=== PATIENT | female | born 1940 | race Caucasian/White ===

== ENCOUNTER 2019-10-28 11:57 | Emergency (ER) | payer MEDICARE, SELFPAY ==
[2019-10-28 11:58] VITALS: BP 121/72; PULSE 102; RESP 16; TEMP 36.3; O2SAT 98; BMI 21.4
--- NOTE | 2019-10-28 12:14 | EKG12_ITS ---
Test Reason : SOB, EKG CHNGE @ Blood Pressure : / mmHG Vent. Rate : 079 BPM Atrial Rate : 079 BPM P-R Int : 138 ms QRS Dur : 080 ms QT Int : 366 ms P-R-T Axes : 063 -26 055 degrees QTc Int : 419 ms Normal sinus rhythm Low voltage QRS (Limb Leads) Poor R wave progression Inferior RI, age undetermined, cannot be excluded Confirmed by JONNA STALEY, CALIN ([id number]), manager editorial PARK ZARATE ([id number]) on 10/31/2019 10:25:46 AM Referred By: LENA Confirmed By:CALIN COYLE MD
--- NOTE | 2019-10-28 12:20 | ED.DCSUM_ITS ---
- ER Visit Summary Date of Service: 10/28/19 Chief Complaint: HPI Cough and recent URI currently on Zithromax Z-RUPAL. States she just felt weak for last several days. Denies any dysuria melena. Has epigastric abdominal discomfort which she thinks is from coughing. Denies nausea, vomiting or diarrhea. No melena. No dysuria. No fever. Was seen today in primary care physician's office by 1 of the other physicians. They sent her in for further evaluation after he did an EKG. She denies any recent exertional chest pain or exertional dyspnea. States she just feels generally weak. Physical Exam: The patient is a 79 F history of asthma and reflux. Prior hysterectomy. No cardiac disease history. H EENT exam unremarkable. Neck is nontender no JVD no lymphadenopathy. Lungs wet cough. Expiratory wheezing. Heart regular rate and rhythm no murmur rate about 75. Abdomen soft nontender normal bowel sounds no peritoneal signs. No pulsatile mass. Right upper inner quadrant port old. No obstruction. Extremities moves all 4. Neurovascular intact. Calves nontender without edema or cords. Neurologically she is awake and alert with no focal motor deficits. Test Results: Normal white count of 6. Hemoglobin 15. No bands. Chemistries normal. Normal gap normal creatinine. Liver enzymes normal. Lipase normal. Troponin normal. EKG sinus rhythm rate 79 no acute signs of OH or ischemia. Unchanged from prior EKG from 2016. Chest x-ray normal no acute abnormality normal cardiac silhouette mediastinum. 2 views AP and lateral read both by myself and the radiologist. Emergency Department Course and Treatment: Clinically appears the patient has a viral respiratory infection. Will rule out pneumonia. He is atypical and most likely noncardiac epigastric pain. I will check a troponin lipase and liver enzymes along with other screening labs. She will receive 1 DuoNeb aerosol for expiratory wheezing. Repeat exam patient doing well at 1517. I had a long discussion with her and family. The epigastric discomfort is a burning sensation. A work-up for its negative. She has been on a proton pump inhibitor in the past. She will be started on Prilosec. Follow-up with your doctor to make sure this is improving because if it is not she may need imaging. Treatment Plan: Prilosec daily. For 2 weeks. Follow-up with your doctor. Return if worse. Disposition: dc Impression: Acute generalized weakness Acute bronchitis with wheezing Epigastric dull pain secondary to gastritis This note was generated with [employer] dictation software. It may contain incorrect words, spelling, and punctuation that were not noted in review of the chart prior to signing ED Disposition - Plan for ED Patient: Referrals: Dimitry Bain MD [Primary Care Provider] -
[2019-10-28] MEDS: Ipratropium/Albuterol Sulfate 3 ML AMPUL.NEB INHALATION (12:27)
[2019-10-28 12:31] VITALS: PULSE 76; RESP 18; O2SAT 94
--- NOTE | 2019-10-28 12:40 | RAD_ITS ---
STUDY: X-RAY CHEST REASON FOR EXAM: Female, 79 years old. COUGH AND WHEEZING, SOB -- X 10 DAYS TECHNIQUE: PA and lateral views of the chest. COMPARISON: None. FINDINGS: Hyperinflation. The lungs are clear. There is no demonstrated pleural abnormality. Normal size heart. Normal mediastinum and caro. Normal visualized pulmonary arteries. Normal visualized aortic arch and descending thoracic aorta. There is demineralization of the osseous structures. Normal visualized ribs, clavicles, and shoulders. There is no demonstrated abnormality of the visualized soft tissue structures of the upper abdomen. RAD/Chest PA and Lateral IMPRESSION: Hyperinflation. Electronically Signed: Paul Burton, at 12:57 EST , Service support ,
[2019-10-28 12:45] LABS: Absolute Lymphocyte Count 1.31 X10^3/uL (0.83-4.51); Absolute Neutrophil Count 4.3 X10^3/uL (2.0-7.7); Basophil# 0.01 X10^3/uL; Basophil% 0.2 % (0-1); Eosinophil# 0.01 X10^3/uL; Eosinophils% 0.2 % (0-5); Hemoglobin 15.3 g/dL (12.0-15.0); Lymphocyte # 1.31 X10^3/ul (4.0); Lymphocyte % 21.3 % (19-41); Mean Corpuscular Hgb 30.5 pg (27.0-32.0); Mean Corpuscular Volume 89.8 fL (81-99); Mean Platelet Vol. 9.7 fl (6.2-12.0); Monocyte# 0.47 X10^3/uL; Monocyte% 7.6 % (0-10); NRBC Flagged by Analyzer 0 % (0-5); Neutrophil # 4.34 X10^3/uL (2.7-7.7); Neutrophil % 70.5 % (47-70); Platelet Count 292 K/mm3 (150-450); RBC Distribution Width CV 12.9 % (11.6-14.6); RBC Distribution Width SD 42.2 fl (35.1-43.9); Red Blood Count 5.01 M/mm3 (4.2-5.4); White Blood Count 6.2 K/mm3 (4.4-11.0)
[2019-10-28 13:04] LABS: AST(SGOT) 12 U/L (15-37); Alanine Aminotransfer ALT/SGPT 25 U/L (13-56); Albumin, Serum 3.9 g/dL (3.2-5.0); Alkaline Phosphatase 108 U/L (45-117); Anion Gap 5 (5-15); BUN 12 mg/dL (7-18); BUN/Creat Ratio 13.4 RATIO (10-20); Calcium,Total 9.9 mg/dL (8.5-10.1); Chloride 108 mmol/L (98-107); EST Glomerular Filtration Rate 65 mL/min (>60); Est Glom Filt Rate - Afr Amer 78 mL/min (>60); Globulin 3.2 g/dL (2.2-4.2); Glucose 99 mg/dL (74-106); Lipase 190 U/L (73-393); Potassium 3.9 mmol/L (3.5-5.1); Protein, Total 7.1 g/dL (6.4-8.2); Sodium Level 139 mmol/L (136-145)
[2019-10-28 13:33] VITALS: BP 128/81; PULSE 90; RESP 16; RESP 18; TEMP 36.6; O2SAT 99
--- NOTE | 2019-10-28 15:25 | ED.DEP ---
ED Disposition - Plan for ED Patient: Disposition: Home or Assisted Living Instructions: BRONCHITIS with Wheezing (Adult), GASTRITIS (Adult) Prescriptions: Omeprazole [Prilosec] 20 mg PO DAILY #30 cap Prescription Printed Referrals: Dimitry Bain MD [Primary Care Provider] - 1 Week Additional Instructions: Plenty of fluids and rest. Finish your antibiotic. Prilosec daily as needed for reflux. Follow-up with your doctor to ensure you are improving.
[2019-10-28 16:13] VITALS: BP 127/97; PULSE 88; RESP 16; O2SAT 98
== END 2019-10-28 16:16 | disposition home or self-care (01) ==
PROVIDERS: Emergency Provider Emergency Medicine; Family Provider Family Medicine; PCP Family Medicine
DX: J20.9 Acute bronchitis, unspecified (principal); K29.70 Gastritis, unspecified, without bleeding; J45.909 Unspecified asthma, uncomplicated; K21.9 Gastro-esophageal reflux disease without esophagitis
CPT/HCPCS: 71046; 80048; 80076; 83690; 84484; 85025; 93005; 94640; 99283; A4216

== ENCOUNTER → 2020-05-07 17:15 | Outpatient (CLI) | payer MEDICARE, SELFPAY ==
--- NOTE | 2020-05-07 17:19 | RAD_ITS ---
STUDY: X-RAY - LUMBAR SPINE REASON FOR EXAM: Female, 80 years old. Sciatica of right side TECHNIQUE: 5 view(s) of the lumbar spine were obtained. COMPARISON: None FINDINGS: Normal lumbar lordosis. There is a dextroscoliosis of the lumbar spine. There is a normal alignment of the vertebrae in the lateral view. There is multilevel endplate spondylosis of the lumbar vertebrae. There is multi-level degenerative disc disease with multi-level disc space narrowing. There is no demonstrated fracture. Retained stool noted in the colon RAD/L/S Spine Min 4 Views IMPRESSION: Multilevel degenerative changes with a dextroscoliosis. Electronically Signed: Robby Giron MD at 9:15 EDT , Service support ,
== END ==
PROVIDERS: PCP Family Medicine; Referring Provider Family Medicine; Visit Provider Family Medicine
DX: M54.31 Sciatica, right side (principal)
CPT/HCPCS: 72110

== ENCOUNTER 2020-06-15 13:30 | Outpatient (RCR) | payer MEDICARE, SELFPAY ==
--- NOTE | 2020-05-11 11:03 | HP.PTEVAL_ITS ---
Patient's Visit Information VIDA ARELLANO is a 80 year old F referred to Physical Therapy by Dr. Ryanne Lozano MD with a diagnosis of DDD. Date of Evaluation: 05/11/20 Physical Therapist: Nadeen Ngo PT, Cert MDT - Visit Plan Frequency: 2x /Week Duration: 6 Weeks Plan: POSTURE CORRECTION/STRENGTHENING, INSTRUCTION IN APPROPRIATE BODY MECHANICS AND ACTIVITY MODIFICATIONS. DLS STARTING WITH A NEUTRAL SPINE PROGRESSING ROM TOLERATED. BISI LE ROM, STRETCHING AND STRENGTHENING. HEP INSTRUCTION. - Subjective Work/Leisure: RETIRED. HAS TO DO A LOT OF MOWING. WALKING AND/OR RIDING. Disability: NO. Present symptoms: LOW BACK PAIN, RIGHT HIP PAIN, RIGHT THIGH PAIN, RIGHT CALF PAIN AND RIGHT GREAT TOE. LEFT KNEE PAIN. TINGLILNG IN RIGHT LE. Present since: LAST MARCH 2019. Pain Scale: WORST 7/10, LEAST 6/10. Currently: 6/10. Commenced as a result of: DOING LANDSCAPING. Symptoms at onset: LOW BACK. Worse: LIFTING - EVEN LIGHT STUFF, SWEEPING, ANY WALKING - BUT I JUST DO IT, MORNINGS, MOWING, STAIRS, RISING FROM SITTING, SITTING DOWN,. Better: NOTHING - EVEN CORTISONE SHOT Thursday05/07/[address] LOZANO BARELY HAS HELPED IF AT ALL. Disturbed sleep: YES. Previous history/Previous treatment: UNREMARKABLE. NO BACK SURGERY. NO PRIOR INJECTIONS. TO PHYSICAL THERAPY. (CHIROPRACTOR FOR MID/UPPER BACK FOR ABOUT 3 MONTHS LONG TIME AGO). Treatment this episode: CORTISONE SHOT BY DR. LOZANO. Coughing/ sneezing/straining: POSITIVE. Gait: PATIENT REPORTS SHE WALKS EVEN THOUGH IT HURTS. THE PAIN GOES ALL THE WAY DOWN THE LEG TO THE BIG TOE. Difficulty initiating urinatin: NO NEW ONSET. Accidents: NO. Unexplained weight loss: NO. Imaging: RECENT LUMBAR X-RAY - Normal lumbar lordosis. There is a dextroscoliosis of the lumbar spine. There is a normal alignment of the vertebrae in the lateral view. There is multilevel endplate spondylosis of the lumbar vertebrae. There is. multi-level degenerative disc disease with multi- level disc space. narrowing. There is no demonstrated fracture. PMH: UNREMARKABLE. KNEE PAIN. - Objective Sitting/Standing Posture: POOR. INCREASED TRUNK FLEXION. Active Correction of posture: NE. Other Observations: INDEP GUARDED GAIT AND TRANSFERS. UE EXTREMITY DEPENDENT WITH TRANSFERS. DIFFICULTY RISING FROM SITTING AND INITIATING GAIT. Motor deficit: BISI LE'S 5/5 WITH MMT'ING EXCEPT HIPS 4/5. Sensory deficit: BISI LE LIGHT TOUCH SENSATION APPEARS INTACT AND SYMMETRICAL. ROM deficit: WFL (OR EVEN EXCESSIVE HS'S ROM). Reflexes: 2/3 BISI LE'S. Dural Signs: NEGATIVE BISI LE'S. Lumbar mvmt loss: flex - NIL. ext - PAULO. R SG - PAULO. L SG - PAULO. PATIENT REPORTS MODERATE DISCOMFORT WITH LUMBAR ROM TESTING. Core strength: POOR. Palpation: NO ACUTE TENDERNESS WITH PALPATION OF THE LUMBOSACRAL REGIONS OR HIPS. OTHER: PATIENT HAS LIFT IN LEFT SHOE NOW AND SHE HASN'T NOTICED ANY IMPROVEMENT. TREATMENT: NEUROMUSCULAR REEDUCATION - RETRAINING OF MVMT AND POSTURE FOR SITTING, LYING AND STANDING ACTIVITIES. - Goals Goal 1:: DECREASE C/O BACK AND LE SX'S (ESPECIALLY RIGHT LE). Goal Time Frame: 4-6 Weeks Goal 2:: IMPROVE LIFTING, STANDING, SLEEP, SOCIAL LIFE, TRAVEL AND HOMEMAKING FUNCTION Goal Time Frame: 4-6 Weeks Goal 3:: INSTRUCT IN PROPHYLAXIS Goal Time Frame: 4-6 Weeks - Anticipated Interventions Patient/Client Instruction: Educate patient on: Condition, Plan of Care, Risk Factors, Benefits of Fitness Program For the Purpose of:: To improve self management Therapeutic Exercise to Include: Strength training, Body mechanics, Postural training, Flexibilty training, Neuromotor development, In an aquatic setting, Dynamic Lumbar Stabilization For the Purpose of:: To decrease pain, To increase ROM, To improve muscle performance and motor function, To increase tolerance to activity/condition/position, To improve ability of physical actions for home/community/work/leisure, To improve gait and locomotor functions Cryotherapy (ice pack, ice massage): Yes Thermo therapy (hot pack): Yes Ultrasound (thermal/non thermal): Yes For the Purpose of:: To decrease pain, To decrease swelling/inflammation, To improve nutrient delivery to tissue Thank you for the opportunity to evaluate your patient. For Medicare and Medicare HMO plans, please review the plan of care and approve it. It will need to be FAXED BACK to us at [phone] for Medicare purposes. For Medicare only, by signing this I certify the plan of care. Please let me know if there are questions or concerns regarding this plan of care. Physician Signature: Date:_
--- NOTE | 2020-06-15 13:59 | HP.PTDCSUM ---
It has been my pleasure to treat VIDA ARELLANO referred by Dr. Ryanne Lozano MD, with the diagnosis of DDD for a total of 11 visit(s). Discharge Date: Please see the following information for a summary of their discharge status. Subjective: PATIENT REPORTS HER LOW BACK PAIN IS BETTER BUT THE PAIN AND STINGING DOWN HER RIGHT LEG IS NOT BETTER. ALYSA REPORTS SHE HAD A FOLLOW UP WITH DR. SCHWARTZ LAST WEEK AND HE ADDED AN EX TO HER HOME PROGRAM. SHE DESCRIBES A PIRIFORMIS STRETCH AND SHE REPORTS IT MAKES HER PAIN WORSE. SHE REPORTS THE OTHER HOME EX'S SHE HAS ARE HELPING. PATIENT REPORTS SHE IS STILL GETTING A LOT OF PAIN IN HER RIGHT LE WITH THINGS LIKE DOING DISHES. Back Pain Intensity (Out of 10): 5 Right leg Pain Intensity (Out of 10): 6 % Improvement: 20 Objective/Function: PATIENT WAS SEEN TODAY FOR RE-ASSESSMENT OF PROGRESS TOWARD THE SET PT GOALS AND THE NEED FOR FURTHER PHYSICAL THERAPY VS READINESS FOR DISCHARGE. SHE REPORTS A LITTLE BIT OF DECREASED LOW BACK PAIN BUT NO IMPROVEMENT IN RIGHT LE SX'S. THIS PT REVIEWED ALL OF PATIENTS CURRENT HEP INCLUDING EX SHE DESCRIBES GIVEN BY DR. SCHWARTZ AND CORRECTIONS GIVEN. ABLE TO PERFORM ALL HOME EX'S WITHOUT INCREAED PAIN AFTER INSTRUCTIONS GIVEN. PATIENT MAY BENEFIT FROM FURTHER IMAGING DUE TO LONG HISTORY OF RIGHT LE SX'S AND NOT IMPROVING WITH PT. UPON EXAM TODAY: INDEP GUARDED GAIT AND TRANSFERS. NO LONGER UE EXTREMITY DEPENDENT WITH TRANSFERS BUT DIFFICULTY RISING FROM SITTING AND INITIATING GAIT. Motor deficit: BISI LE'S 5/5 WITH MMT'ING EXCEPT HIPS 4/5. Sensory deficit: BISI LE LIGHT TOUCH SENSATION APPEARS INTACT AND SYMMETRICAL. ROM deficit: WFL (OR EVEN EXCESSIVE HS'S ROM). Reflexes: 2/3 BISI LE'S. Dural Signs: NEGATIVE BISI LE'S. Lumbar mvmt loss: flex - NIL. ext - PAULO. R SG - MOD. L SG - MOD. PATIENT REPORTS NO PAIN BUT PULLING WITH LUMBAR ROM TESTING. Core strength: POOR. Palpation: NO ACUTE TENDERNESS WITH PALPATION OF THE LUMBOSACRAL REGIONS OR HIPS. Goal 1:: DECREASE C/O BACK AND LE SX'S (ESPECIALLY RIGHT LE). Goal Progress: Not Progressing Goal 2:: IMPROVE LIFTING, STANDING, SLEEP, SOCIAL LIFE, TRAVEL AND HOMEMAKING FUNCTION Goal Progress: Not Progressing Goal 3:: INSTRUCT IN PROPHYLAXIS Goal Progress: Not Progressing Plan: D/C TO HEP. PATIENT DOES NOT WANT TO TRY TO CONTINUE PT AT THIS TIME. THIS PT RECOMMENDS PHYSICIAN RE-ASSESSMENT AND PATIENT PLANS TO FOLLOW UP WITH PCP. If there are questions or concerns regarding this patient's physical therapy, please feel free to call me at [phone]. Thank you for the referral of this patient. Sincerely, Nadeen Ngo, PT, Cert MDT
== END 2020-06-15 19:00 | disposition home or self-care (01) ==
LOC: PT 13:30
PROVIDERS: PCP Family Medicine; Referring Provider Family Medicine; Visit Provider Family Medicine
DX: M51.36 Other intervertebral disc degeneration, lumbar region (principal)
CPT/HCPCS: 97112; 97113; 97162; 97164

== ENCOUNTER → 2020-07-10 13:10 | Outpatient (CLI) | payer MEDICARE, SELFPAY ==
--- NOTE | 2020-07-10 13:25 | BD_ITS ---
STUDY: DUAL ENERGY X-RAY ABSORPTIOMETRY / DXA REASON FOR EXAM: Female, 80 years old. MAT MAN- SURGICAL AT 51 YRS OLD -- CURRENTLY ON HRT -- USES STEROID INHALER NEEDED -- TAKES MULTIVITAMIN -- DOES HIGH AMOUNT OF EXERCISE -- FAMILY HX OF OSTEO- MOTHER -- HX OF TOE FX''s -- [place] OF 1.5-2 INCHES TECHNIQUE: Bone Mineral Density (BMD) measurements of lumbar spine and bilateral hips were obtained. COMPARISON: Comparison is made with prior study dated 07/01/2011. FINDINGS: Lumbar Spine (L1-L4): g/cm2 (0.806) / T-score (-3.0) / Z-score (-1.2) Findings are suggestive of osteoporosis with a high fracture risk. Left Femur Total: g/cm2 (0.639) / T-score (-2.9) / Z-score (-1.0) Left Femoral Neck: g/cm2 (0.710) / T-score (-2.4) / Z-score (-0.3) Right Femur Total: g/cm2 (0.669) / T-score (-2.7) / Z-score (-0.8) Right Femoral Neck: g/cm2 (0.740) / T-score (-2.1) / Z-score (-0.1) The T-Scores on the most recent prior examination were: Lumbar Spine (L1-L4): There has been improvement of bone density since the previous examination. Left Femur Total: which represents a worsening of 9.5%. Right Femur Total: which represents a worsening of 10.7%. BD/Dexa Bone Density Study IMPRESSION: The patient is considered osteoporotic as outlined below according to World Rip Organization (WHO) criteria with a high fracture risk. There has been worsening of bone density since the previous examination. Reference Information: The T-score is the number of standard deviations above or below the standard which is normal for young adults at their peak bone mineral density. The World Health Organization (WHO) interprets the T-scores as follows: Above -1 Normal bone density Between -1 and -2.5 Osteopenia Equal to / or below -2.5 Osteoporosis As a practical clinical guideline, osteopenia may be graded as follows: Mild -1 through -1.5 Moderate -1.6 through -2.0 Severe -2.1 through -2.4 The Z-score is the number of standard deviations above or below age-matched controls. A Z-score of less than -1.5 would be considered abnormal. References: 1. NIH Osteoporosis and Related Bone Diseases http://www.osteo.org 2. International Society for Clinical Densitometry http://www.iscd.org 3. National Osteoporosis Foundation http://www.nof.org Electronically Signed: Paul Burton, at 15:32 EDT , Service support ,
--- NOTE | 2020-07-10 13:27 | BI_ITS ---
MAMMOGRAPHY - BILATERAL SCREENING REASON FOR EXAM: Female, 80 years old. Routine annual screening examination. PERTINENT HISTORY: Aunt with breast cancer. TECHNIQUE: Digital bilateral breast candice (3D mammographic acquisition) in the CC and MLO projections. 2-D mediolateral oblique (MLO) and craniocaudad (CC) views of both breasts were obtained. CAD: Full Field Digital Mammography with Computer Added Detection was performed. COMPARISON: Comparison is made with prior study dated 07/01/2011. FINDINGS: Breast Composition: There are scattered areas of fibroglandular density. There are no dominant masses or suspicious calcifications. No other significant abnormalities are identified. There has been no significant change since the prior study. BI/SCREEN MAMM (CAD) W/CANDICE BILAT IMPRESSION: Stable bilateral screening mammogram. Yearly follow-up mammogram recommended. (A) ASSESSMENT CATEGORY: BIRADS Category 1: Negative. A letter regarding these results will be sent to the patient by the facility within 30 days. Approximately 10% of breast cancers are not detected by mammography. A normal mammogram should not delay biopsy of a clinically suspicious abnormality. [id number] Electronically Signed: Paul Burton, at 15:00 EDT , Service support ,
== END ==
PROVIDERS: PCP Family Medicine; Referring Provider Family Medicine; Visit Provider Family Medicine
DX: Z00.00 Encounter for general adult medical examination without abnormal findings (principal); Z12.31 Encounter for screening mammogram for malignant neoplasm of breast; Z78.0 Asymptomatic menopausal state
CPT/HCPCS: 77063; 77067; 77080

== ENCOUNTER → 2020-07-12 12:59 | Outpatient (CLI) | payer MEDICARE, SELFPAY ==
--- NOTE | 2020-07-12 13:08 | MRI_ITS ---
STUDY: MRI LUMBAR SPINE WITHOUT CONTRAST REASON FOR EXAM: Female, 80 years old. back pain, ddd, rt hip/leg pain TECHNIQUE: Standardized fat and water weighted pulse sequences were obtained in the sagittal and axial planes. COMPARISON: None FINDINGS: No compression deformity or fracture line or bone marrow edema. No aggressive process. Normal lumbar lordosis. There is a levoscoliosis of the lumbar spine. Normal conus medullaris that terminates at the T12 level. L1-2: Normal endplates. The disc is desiccated. Normal disc height and morphology. Normal bilateral facet joints. Normal central canal and bilateral lateral recesses. Normal bilateral intervertebral neural foramina. L2-3: Moderate to severe disc space narrowing with a diffuse disc osteophyte complex. Mild to moderate endplate degenerative changes are present. The facet joints are mildly hypertrophied. Normal central canal and bilateral lateral recesses. Normal bilateral intervertebral neural foramina. L3-4: Moderate to severe disc space narrowing with a mild diffuse disc osteophyte complex. Normal bilateral facet joints. Normal central canal and bilateral lateral recesses. Normal bilateral intervertebral neural foramina. L4-5: Anterolisthesis of L4 and L5 measuring 7.5 mm. Mild disc space narrowing with minimal annular bulging. The facet joints are moderately hypertrophied with right lateral recess stenosis and nerve root compression. Mild central canal stenosis is present. Left lateral recess stenosis is present without nerve root compression. Moderate right foraminal stenosis is present without nerve root compression. Normal left neural foramen. L5-S1: Normal endplates. The disc is desiccated. Normal disc height and morphology. Mild degenerative changes of facet joints. Normal central canal and bilateral lateral recesses. Normal bilateral intervertebral neural foramina. Normal visualized sacral ala. There is moderate paraspinal muscular atrophy. MRI/Spine Lumbar (Routine) IMPRESSION: Multilevel degenerative changes, as described above. Electronically Signed: Brain Schultz MD at 23:48 EDT , Service support ,
== END ==
PROVIDERS: PCP Family Medicine; Referring Provider Family Medicine; Visit Provider Family Medicine
DX: M51.36 Other intervertebral disc degeneration, lumbar region (principal)
CPT/HCPCS: 72148

== ENCOUNTER → 2020-07-13 10:24 | Outpatient (CLI) | payer MEDICARE, SELFPAY ==
[2020-07-13 12:35] LABS: PTHIN 74.1 pg/mL (18.4-80.1)
[2020-07-13 12:42] LABS: Vitamin D,25 Hydroxy 35.8 ng/mL
[2020-07-13 12:46] LABS: Anion Gap 6 (5-15); BUN 14 mg/dL (7-18); BUN/Creat Ratio 17.2 RATIO (10-20); Calcium,Total 9.2 mg/dL (8.5-10.1); Chloride 107 mmol/L (98-107); Creatinine, Serum 0.82 mg/dL (0.55-1.02); EST Glomerular Filtration Rate 72 mL/min (>60); Est Glom Filt Rate - Afr Amer 87 mL/min (>60); Glucose 92 mg/dL (74-106); Phosphorus 3.1 mg/dL (2.5-4.9); Potassium 3.9 mmol/L (3.5-5.1); Sodium Level 140 mmol/L (136-145)
== END ==
PROVIDERS: PCP Family Medicine; Referring Provider Family Medicine; Visit Provider Family Medicine
DX: Q78.2 Osteopetrosis (principal)
CPT/HCPCS: 36415; 80048; 82306; 82330; 83970; 84100

== ENCOUNTER → 2021-01-28 12:07 | Outpatient (CLI) | payer MEDICARE, SELFPAY ==
[2021-01-28 15:20] LABS: Hematocrit 40.4 % (37-47); Hemoglobin 12.7 g/dL (12.0-15.0); Mean Corp Hgb Conc 31.4 g/dL (32-36); Mean Corpuscular Hgb 29.6 pg (27.0-32.0); Mean Corpuscular Volume 94.2 fL (81-99); Mean Platelet Vol. 10.8 fl (6.2-12.0); Platelet Count 286 K/mm3 (150-450); RBC Distribution Width CV 13.6 % (11.6-14.6); RBC Distribution Width SD 46.8 fl (35.1-43.9); Red Blood Count 4.29 M/mm3 (4.2-5.4); White Blood Count 6.1 K/mm3 (4.4-11.0)
[2021-01-28 15:39] LABS: ALB/GLOB Ratio 1.1 RATIO (0.9-2.4); AST(SGOT) 15 U/L (15-37); Alanine Aminotransfer ALT/SGPT 21 U/L (13-56); Albumin, Serum 3.3 g/dL (3.2-5.0); Alkaline Phosphatase 85 U/L (45-117); Anion Gap 3 (5-15); BUN 17 mg/dL (7-18); BUN/Creat Ratio 20.8 RATIO (10-20); Calcium,Total 9.5 mg/dL (8.5-10.1); Chloride 107 mmol/L (98-107); Creatinine, Serum 0.82 mg/dL (0.55-1.02); EST Glomerular Filtration Rate 72 mL/min (>60); Est Glom Filt Rate - Afr Amer 87 mL/min (>60); Globulin 2.9 g/dL (2.2-4.2); Glucose 83 mg/dL (74-106); Potassium 4.2 mmol/L (3.5-5.1); Protein, Total 6.2 g/dL (6.4-8.2); Sodium Level 139 mmol/L (136-145); Thyroid Stim Hormone (TSH) 1.29 uIU/mL (0.358-3.74)
[2021-01-28 15:45] LABS: BNP,B-Type NATRIURETIC PEPTIDE 34.5 pg/mL (0-100)
== END ==
PROVIDERS: PCP Family Medicine; Visit Provider Family Medicine
DX: R60.0 Localized edema (principal)
CPT/HCPCS: 36415; 80053; 83880; 84443; 85027

== ENCOUNTER → 2021-09-10 16:01 | Outpatient (CLI) | payer MEDICARE, SELFPAY ==
[2021-09-10 18:03] LABS: Anion Gap 2 (5-15); BUN 15 mg/dL (7-18); BUN/Creat Ratio 19.9 RATIO (10-20); Calcium,Total 9.7 mg/dL (8.5-10.1); Chloride 107 mmol/L (98-107); Creatinine, Serum 0.75 mg/dL (0.55-1.02); EST Glomerular Filtration Rate 79 mL/min (>60); Est Glom Filt Rate - Afr Amer 95 mL/min (>60); Glucose 83 mg/dL (74-106); Magnesium 2.3 mg/dL (1.6-2.6); Potassium 4.1 mmol/L (3.5-5.1); Sodium Level 140 mmol/L (136-145); Thyroid Stim Hormone (TSH) 1.11 uIU/mL (0.358-3.74)
[2021-09-10 18:08] LABS: Vitamin D,25 Hydroxy 32.1 ng/mL
[2021-09-11 08:57] LABS: PTHIN 54.3 pg/mL (18.4-80.1)
== END ==
PROVIDERS: PCP Family Medicine; Referring Provider Family Medicine; Visit Provider Family Medicine
DX: M81.0 Age-related osteoporosis without current pathological fracture (principal)
CPT/HCPCS: 36415; 80048; 82306; 82330; 83735; 83970; 84443

== ENCOUNTER → 2022-07-15 | Outpatient (CLI) | payer MEDICARE, SELFPAY ==
--- NOTE | 2022-07-15 13:25 | BD_ITS ---
STUDY: DUAL ENERGY X-RAY ABSORPTIOMETRY / DXA REASON FOR EXAM: Female, 82 years old. [id number]. Patient is postmenopausal. TECHNIQUE: Bone Mineral Density (BMD) measurements of lumbar spine and bilateral hips were obtained. COMPARISON: Comparison is made with prior study of 07/10/2020. FINDINGS: Lumbar Spine (L1-L4): g/cm2 (0.709) / T-score (-2.8) / Z-score (-0.2) Findings are suggestive of osteoporosis with a high fracture risk. Left Femur Total: g/cm2 (0.610) / T-score (-2.7) / Z-score (-0.6) Left Femoral Neck: g/cm2 (0.571) / T-score (-2.5) / Z-score (-0.2) Right Femur Total: g/cm2 (0.652) / T-score (-2.4) / Z-score (-0.3) Right Femoral Neck: g/cm2 (0.615) / T-score (-2.1) / Z-score (0.2) The T-Scores on the most recent prior examination were: Lumbar Spine (L1-L4): There has been worsening of bone density since the previous examination. Left Femur Total: which represents an improvement of 4.5%. Right Femur Total: which represents an improvement of 6.3%. BD/Dexa Bone Density Study IMPRESSION: The patient is considered osteoporotic as outlined below according to World Rip Organization (WHO) criteria with a high fracture risk. There has been no change of bone density since the previous examination. Reference Information: The T-score is the number of standard deviations above or below the standard which is normal for young adults at their peak bone mineral density. The World Health Organization (WHO) interprets the T-scores as follows: Above -1 Normal bone density Between -1 and -2.5 Osteopenia Equal to / or below -2.5 Osteoporosis As a practical clinical guideline, osteopenia may be graded as follows: Mild -1 through -1.5 Moderate -1.6 through -2.0 Severe -2.1 through -2.4 The Z-score is the number of standard deviations above or below age-matched controls. A Z-score of less than -1.5 would be considered abnormal. References: 1. NIH Osteoporosis and Related Bone Diseases www osteo.org 2. International Society for Clinical Densitometry www iscd.org 3. National Osteoporosis Foundation www nof.org Electronically Signed: Paul Burton MD at 13:20 EDT ,
== END | disposition home or self-care (01) ==
LOC: OPBD 13:17
PROVIDERS: PCP Family Medicine; Visit Provider Family Medicine
DX: M81.0 Age-related osteoporosis without current pathological fracture (principal)
CPT/HCPCS: 77080

== ENCOUNTER 2022-10-02 20:27 | Emergency (ER) | payer MEDICARE, SELFPAY ==
[2022-10-02 20:28] VITALS: BP 145/90; PULSE 98; RESP 18; TEMP 36.7; O2SAT 98; BMI 23.3
--- NOTE | 2022-10-02 22:05 | EX.ED.DYSGE1 ---
HPI History of Present Illness Chief Complaint: Bite Narrative Narrative: Patient is an 82-year-old female who reports no significant medical history but states she occasionally takes omeprazole for GERD. She states that she noticed her right ear was painful approximately 5 days ago. She states she thought she had a blackhead. She states she did pick at it from time to time and then today while she was out she felt something fall and when she used her finger to remove the object out of her ear she realized it was a tick. She states that her family doctor cannot get her into see her and therefore she comes in for evaluation. She states at this time she has no fevers chills muscle aches fatigue or rash. [facility] Medical History (Updated 10/02/22 @ 22:[address] Rodney Higgins, ) Back pain Home Medications estradiol 1 mg tablet 1 mg PO DAILY 02/22/16 [History Last Taken Unknown] omega-3 fatty acids-fish oil 340 mg-1,000 mg capsule (Fish Oil) 1 ea PO DAILY 02/22/16 [History Last Taken Unknown] omeprazole 20 mg capsule,delayed release 20 mg PO DAILY #30 caps 10/28/19 [Rx Last Taken Unknown] doxycycline hyclate 100 mg capsule 100 mg PO BID 14 days #28 caps 10/02/22 [Rx Last Taken Unknown] Allergy/AdvReac Type Severity Reaction Status Date / Time pneumococcal vaccine Allergy Swelling Verified 10/02/22 21:13 vaccine adjuvant system, Allergy Swelling Verified 10/02/22 21:13 [id number] liposomal [From Shingrix (PF)] varicella-zoster virus Allergy Swelling Verified 10/02/22 21:13 glycoprotein E, recombinant [From Shingrix (PF)] Social History Smoking Status: Never smoker ROS ROS ED Constitutional Constitutional ED: Denies chills or fever(s) ENT ENT ED: Reports ear pain; Denies sore throat Cardiovascular Cardiovascular: Denies chest pain Respiratory/Chest Respiratory/Chest: Denies cough or dyspnea Gastrointestinal Gastrointestinal: Denies abdominal pain, diarrhea, nausea or vomiting Genitourinary Genitourinary ED: Denies dysuria Musculoskeletal Musculoskeletal: Denies myalgias Integumentary Denies rash Neurologic Neurologic: Denies headache(s) Hematologic/Lymphatic Hematologic/Lymphatic: Denies easy bleeding or easy bruising EXAM Physical Exam Const Vital Signs: 10/02/22 20:28 Temperature 98.0 F Temperature Source Temporal Pulse Rate 98 Respiratory Rate 18 Blood Pressure 145/90 H Blood Pressure Mean 108 Pulse Ox 98 Oxygen Delivery Method Room Air Positive well nourished and well developed General Appearance ED: well developed HEENT HEENT Narrative: Bilateral canals and TM are normal. There is a superficial abrasion along the upper portion of the right ear without surrounding cellulitis/erysipelas. There is no retained foreign object/head. No secondary changes of infection. Eyes PERRL and EOMs intact bilaterally Neck supple Resp normal respiratory effort and clear to auscultation bilaterally Cardio regular rate and regular rhythm Extremity normal to inspection Neuro oriented x3 and CN's II-XII intact bilaterally Sensorium / Orientation: alert Psych mental status grossly normal Skin Skin Narrative: Superficial abrasion to the right ear as documented above with remainder of the exam normal and no rashes noted MDM MDM MDM Narrative Medical decision making narrative: Patient presented to the ER with spontaneous resolution of the tick bite. There is no retained tick to remove. She does not have any rashes to suggest systemic infection. However at this time the tick has been present for approximately 5 days and secondary to this she will be put on a 14-day course of doxycycline. As she does not have any signs of systemic infection however there is no need for work-up and she is otherwise safe for discharge. Discharge Plan Triage Chief Complaint: Bite ED Provider: Rodney Higgins Dx/Rx/DC Orders Clinical Impression: Tick bite of ear Instructions: Tick Bites, ED Tick Bite, Abx Tx Prescriptions: New doxycycline hyclate 100 mg capsule 100 mg PO BID 14 Days Qty: 28 0RF No Action estradiol 1 MG tablet 1 mg PO DAILY Label Comments: omega-3 fatty acids-fish oil [Fish Oil] 1 EACH capsule 1 ea PO DAILY omeprazole 20 MG capsule 20 mg PO DAILY Qty: 30 0RF Primary Care Provider: Dimitry Bain Referrals: Dimitry Bain MD [Primary Care Provider] - Activity Restrictions/Additional Instructions: Please continue to check your body for any rashes and if you have worsening symptoms or any further concerns despite taking the antibiotics please return for repeat evaluation Disposition Disposition: Home, Self Care Discharge Date/Time: 10/02/22 22:23
[2022-10-02] MEDS: Doxycycline 100 MG CAPSULE PO (22:22)
== END 2022-10-02 22:23 | disposition home or self-care (01) ==
LOC: ED 22:09
PROVIDERS: Emergency Provider Emergency Medicine; PCP Family Medicine; Visit Provider Emergency Medicine
DX: S00.469A Insect bite (nonvenomous) of unspecified ear, initial encounter (principal); W57.XXXA Bitten or stung by nonvenomous insect and other nonvenomous arthropods, initial encounter
CPT/HCPCS: 99283

== ENCOUNTER → 2022-10-08 | Outpatient (CLI) | payer MEDICARE, SELFPAY ==
[2022-10-08 18:41] LABS: Anion Gap 2 (5-15); BUN 19 mg/dL (7-18); BUN/Creat Ratio 25.5 RATIO (10-20); Calcium,Total 10.1 mg/dL (8.5-10.1); Chloride 106 mmol/L (98-107); Creatinine, Serum 0.75 mg/dL (0.55-1.02); EST Glomerular Filtration Rate 79 mL/min (>60); Est Glom Filt Rate - Afr Amer 96 mL/min (>60); Glucose 96 mg/dL (74-106); Magnesium 2.1 mg/dL (1.6-2.6); Potassium 4.4 mmol/L (3.5-5.1); Sodium Level 140 mmol/L (136-145)
[2022-10-08 19:03] LABS: Vitamin D,25 Hydroxy 68.2 ng/mL
[2022-10-09 08:39] LABS: PTHIN 60.8 pg/mL (18.4-80.1)
== END | disposition home or self-care (01) ==
LOC: MFPLAB 14:32
PROVIDERS: PCP Family Medicine; Referring Provider Family Medicine; Visit Provider Family Medicine
DX: M81.0 Age-related osteoporosis without current pathological fracture (principal)
CPT/HCPCS: 36415; 80048; 82306; 82330; 83735; 83970; 84443

== ENCOUNTER → 2023-01-01 | Outpatient (CLI) | payer MEDICARE, SELFPAY ==
[2023-01-01 18:13] LABS: Anion Gap 8 (5-15); BUN 18 mg/dL (7-18); BUN/Creat Ratio 20.8 RATIO (10-20); Calcium,Total 9.5 mg/dL (8.5-10.1); Chloride 106 mmol/L (98-107); Creatinine, Serum 0.87 mg/dL (0.55-1.02); EST Glomerular Filtration Rate 67 mL/min (>60); Est Glom Filt Rate - Afr Amer 81 mL/min (>60); Glucose 117 mg/dL (74-106); Potassium 4.1 mmol/L (3.5-5.1); Sodium Level 140 mmol/L (136-145)
== END | disposition home or self-care (01) ==
LOC: MFPLAB 15:09
PROVIDERS: PCP Family Medicine; Referring Provider Family Medicine; Visit Provider Family Medicine
DX: E83.52 Hypercalcemia (principal)
CPT/HCPCS: 36415; 80048; 82330

== ENCOUNTER → 2023-07-22 | Outpatient (CLI) | payer MEDICARE, SELFPAY ==
--- NOTE | 2023-07-22 13:41 | RAD_ITS ---
STUDY: X-RAY - LEFT KNEE REASON FOR EXAM: Female, 83 years old. Arthritis, chronic left knee pain. TECHNIQUE: 3 views of the left knee. COMPARISON: None. FINDINGS: Normal visualized distal femur. Normal visualized proximal tibia and fibula. Normal proximal tibiofibular articulation. There is no demonstrated fracture. Normal medial femorotibial compartment. There is mild degenerative arthrosis of the lateral femorotibial compartment. There is mild degenerative arthrosis of the patellofemoral articulation. There is a small to moderate knee joint effusion. The soft tissue structures are unremarkable. 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 Small to moderate knee joint effusion. No demonstrated fracture. Electronically Signed: Garret Cifuentes MD at 14:10 EDT ,
== END | disposition home or self-care (01) ==
LOC: MTRAD 13:37
PROVIDERS: PCP Family Medicine; Referring Provider Nurse Practitioner Acute Care; Visit Provider Nurse Practitioner Acute Care
DX: M13.862 Other specified arthritis, left knee (principal)
CPT/HCPCS: 73562

== ENCOUNTER → 2024-01-06 | Outpatient (CLI) | payer MEDICARE, SELFPAY ==
[2024-01-06 17:54] LABS: PTHIN 98.7 pg/mL (18.4-80.1)
[2024-01-06 17:57] LABS: Vitamin D,25 Hydroxy 58.6 ng/mL
[2024-01-06 18:04] LABS: Ionized Calcium 5.07 mg/dL (4.36-5.20)
[2024-01-06 18:19] LABS: Anion Gap 4 (5-15); BUN 19 mg/dL (7-18); BUN/Creat Ratio 23.7 RATIO (10-20); Calcium,Total 9.4 mg/dL (8.5-10.1); Chloride 108 mmol/L (98-107); EST Glomerular Filtration Rate 73 mL/min (>60); Est Glom Filt Rate - Afr Amer 88 mL/min (>60); Glucose 103 mg/dL (74-106); Potassium 3.9 mmol/L (3.5-5.1); Sodium Level 142 mmol/L (136-145); Thyroid Stim Hormone (TSH) 0.87 uIU/mL (0.358-3.74)
[2024-01-06 22:50] LABS: Ionized Calcium Order ORDER TUBE
== END | disposition home or self-care (01) ==
LOC: MFPLAB 14:50
PROVIDERS: PCP Family Medicine; Visit Provider Family Medicine
DX: M81.0 Age-related osteoporosis without current pathological fracture (principal); F41.1 Generalized anxiety disorder
CPT/HCPCS: 36415; 80048; 82306; 82330; 83970; 84443

== ENCOUNTER → 2024-04-12 | Outpatient (CLI) | payer MEDICARE, SELFPAY ==
[2024-04-12 15:27] LABS: Anion Gap 5 (5-15); BUN 18 mg/dL (7-18); BUN/Creat Ratio 20.6 RATIO (10-20); Calcium,Total 10.1 mg/dL (8.5-10.1); Chloride 108 mmol/L (98-107); Creatinine, Serum 0.88 mg/dL (0.55-1.02); EST Glomerular Filtration Rate 66 mL/min (>60); Est Glom Filt Rate - Afr Amer 80 mL/min (>60); Glucose 146 mg/dL (74-106); Potassium 4.2 mmol/L (3.5-5.1); Sodium Level 141 mmol/L (136-145)
[2024-04-12 15:31] LABS: PTHIN 47.3 pg/mL (18.4-80.1)
== END | disposition home or self-care (01) ==
LOC: MTLAB 13:03
PROVIDERS: PCP Family Medicine; Referring Provider Family Medicine; Visit Provider Family Medicine
DX: E83.51 Hypocalcemia (principal)
CPT/HCPCS: 36415; 80048; 83970

== ENCOUNTER → 2024-07-14 | Outpatient (CLI) | payer MEDICARE, SELFPAY ==
[2024-07-14 12:49] LABS: Mucous, Urine 0 SEEN /hpf (<or=2+); Red Blood Cells-Urine 0 SEEN /hpf (0-5); White Blood Cells 0 SEEN /hpf (0-5)
[2024-07-14 15:16] LABS: Color, Urine Yellow (Yellow); Glucose, Dipstick Normal (Normal); Ketone-Dipstick Negative (Negative); Leukocyte Esterase-Dipstick Negative /ul (Negative); Nitrite-Dipstick Negative (Negative); Occult Blood-Urine Negative /ul (Negative); Protein-Dipstick Negative (Negative); Specific Gravity, Urine 1.015 (1.002-1.030); Urine Bilirubin Dipstick Negative (Negative); Urine Clarity Sl. Cloudy (Clear); Urine Urobilinogen Normal (Normal)
[2024-07-14 15:24] LABS: Amorphous Sediment 1+; Bacteria 1+ /hpf (None Seen); Squamous Epithelial Cells - UA 0-5 SEEN /hpf (5-10); Yeast-Urine RARE /hpf (None Seen)
[2024-07-14 16:02] LABS: ALB/GLOB Ratio 1.1 RATIO (0.9-2.4); AST(SGOT) 15 U/L (15-37); Alanine Aminotransfer ALT/SGPT 19 U/L (13-56); Albumin, Serum 3.6 g/dL (3.2-5.0); Alkaline Phosphatase 99 U/L (45-117); Amylase 62 U/L (25-115); Anion Gap 5 (5-15); BUN 17 mg/dL (7-18); BUN/Creat Ratio 23.3 RATIO (10-20); Calcium,Total 10.7 mg/dL (8.5-10.1); Chloride 105 mmol/L (98-107); Creatinine, Serum 0.73 mg/dL (0.55-1.02); EST Glomerular Filtration Rate 81 mL/min (>60); Est Glom Filt Rate - Afr Amer 98 mL/min (>60); Globulin 3.2 g/dL (2.2-4.2); Glucose 93 mg/dL (74-106); Lipase 53 U/L (13-75); Potassium 4.7 mmol/L (3.5-5.1); Protein, Total 6.8 g/dL (6.4-8.2); Sodium Level 138 mmol/L (136-145)
[2024-07-14 16:18] LABS: Erythrocyte Sedimentation Rate 5 mm/hr (0-30)
[2024-07-14 16:19] LABS: Absolute Lymphocyte Count 1.91 X10^3/uL (0.83-4.51); Basophil# 0.07 X10^3/uL; Basophil% 0.9 % (0-1); Eosinophil# 0.08 X10^3/uL; Hematocrit 44.5 % (37-47); Hemoglobin 14.5 g/dL (12.0-15.0); Lymphocyte # 1.91 X10^3/ul (0.83-4.51); Lymphocyte % 24.6 % (19-41); Mean Corp Hgb Conc 32.6 g/dL (32-36); Mean Corpuscular Hgb 30.7 pg (27.0-32.0); Mean Corpuscular Volume 94.1 fL (81-99); Mean Platelet Vol. 11.4 fl (6.2-12.0); Monocyte# 0.64 X10^3/uL; Monocyte% 8.3 % (0-10); NRBC Flagged by Analyzer 0 % (0-5); Neutrophil # 5.03 X10^3/uL (2.7-7.7); Neutrophil % 64.9 % (47-70); Platelet Count 321 K/mm3 (150-450); RBC Distribution Width CV 13.6 % (11.6-14.6); RBC Distribution Width SD 46.9 fl (35.1-43.9); Red Blood Count 4.73 M/mm3 (4.2-5.4); White Blood Count 7.8 K/mm3 (4.4-11.0)
[2024-07-15 12:30] LABS: Magnesium 2.4 mg/dL (1.6-2.6); Phosphorus 3.7 mg/dL (2.5-4.9)
[2024-07-16 00:27] LABS: PTHIN 66.7 pg/mL (18.4-80.1)
== END | disposition home or self-care (01) ==
PROVIDERS: PCP Family Medicine; Referring Provider Family Medicine; Visit Provider Family Medicine
DX: R10.9 Unspecified abdominal pain (principal); R63.4 Abnormal weight loss; E83.52 Hypercalcemia
CPT/HCPCS: 36415; 80053; 81001; 82150; 83690; 83735; 83970; 84100; 85025; 85652

== ENCOUNTER → 2024-07-21 | Outpatient (CLI) | payer MEDICARE, SELFPAY ==
--- NOTE | 2024-07-21 14:21 | BD_ITS ---
STUDY: DUAL ENERGY X-RAY ABSORPTIOMETRY / DXA REASON FOR EXAM: Female, 84 years old. [id number] TECHNIQUE: Bone Mineral Density (BMD) measurements of lumbar spine and bilateral hips were obtained. COMPARISON: Comparison is made with prior study dated July 15, 2022. FINDINGS: Lumbar Spine (L1-L4): g/cm2 (0.711) / T-score (-2.8) / Z-score (-0.1) Findings are suggestive of osteoporosis with a high fracture risk. Left Femur Total: g/cm2 (0.604) / T-score (-2.8) / Z-score (-0.6) Left Femoral Neck: g/cm2 (0.581) / T-score (-2.4) / Z-score (0.0) Right Femur Total: g/cm2 (0.659) / T-score (-2.3) / Z-score (-0.1) Right Femoral Neck: g/cm2 (0.632) / T-score (-2.0) / Z-score (0.4) The T-Scores on the most recent prior examination were: Lumbar Spine (L1-L4): There has been improvement of bone density since the previous examination. Left Femur Total: which represents a worsening of 1%. Right Femur Total: which represents an improvement of 1.1%. BD/Dexa Bone Density Study IMPRESSION: The patient is considered osteoporotic as outlined below according to World Rip Organization (WHO) criteria with a high fracture risk. There has been improvement of bone density since the previous examination. Reference Information: The T-score is the number of standard deviations above or below the standard which is normal for young adults at their peak bone mineral density. The World Health Organization (WHO) interprets the T-scores as follows: Above -1 Normal bone density Between -1 and -2.5 Osteopenia Equal to / or below -2.5 Osteoporosis As a practical clinical guideline, osteopenia may be graded as follows: Mild -1 through -1.5 Moderate -1.6 through -2.0 Severe -2.1 through -2.4 The Z-score is the number of standard deviations above or below age-matched controls. A Z-score of less than -1.5 would be considered abnormal. References: 1. NIH Osteoporosis and Related Bone Diseases www osteo.org 2. International Society for Clinical Densitometry www iscd.org 3. National Osteoporosis Foundation www nof.org Electronically Signed: Paul Burton MD at 9:23 EDT ,
--- NOTE | 2024-07-21 14:21 | BI_ITS ---
MAMMOGRAPHY - BILATERAL SCREENING REASON FOR EXAM: Female, 84 years old. Routine annual screening examination. PERTINENT HISTORY: Aunt with breast cancer. Remote left excisional breast biopsy. TECHNIQUE: Digital bilateral breast candice (3D mammographic acquisition) in the CC and MLO projections. 2-D mediolateral oblique (MLO) and craniocaudad (CC) views of both breasts were obtained. CAD: Full Field Digital Mammography with Computer Added Detection was performed. COMPARISON: Comparison is made with prior study dated July 10, 2020 and July 01, 2011. FINDINGS: Breast Composition: There are scattered areas of fibroglandular density. There are no dominant masses or suspicious calcifications. No other significant abnormalities are identified. There has been no significant change since the prior study. BI/SCRN MAMM (CAD)W/CANDICE BILAT IMPRESSION: Stable bilateral screening mammogram. Yearly follow-up mammogram recommended. (A) ASSESSMENT CATEGORY: BIRADS Category 1: Negative. A letter regarding these results will be sent to the patient by the facility within 30 days. Approximately 10% of breast cancers are not detected by mammography. A normal mammogram should not delay biopsy of a clinically suspicious abnormality. [id number] Electronically Signed: Paul Burton MD at 15:20 EDT ,
== END | disposition home or self-care (01) ==
LOC: OPBD 14:19
PROVIDERS: PCP Family Medicine; Referring Provider Family Medicine; Visit Provider Family Medicine
DX: Z12.31 Encounter for screening mammogram for malignant neoplasm of breast (principal); Z80.3 Family history of malignant neoplasm of breast; M81.0 Age-related osteoporosis without current pathological fracture
CPT/HCPCS: 77063; 77067; 77080

== ENCOUNTER → 2024-07-29 | Outpatient (CLI) | payer MEDICARE, SELFPAY ==
[2024-07-29 11:46] LABS: Ionized Calcium 5.28 mg/dL (4.36-5.20)
[2024-07-29 12:11] LABS: Vitamin D,25 Hydroxy 68.9 ng/mL
[2024-07-29 12:26] LABS: Ionized Calcium Order ORDER TUBE
== END | disposition home or self-care (01) ==
LOC: LAB 11:06
PROVIDERS: PCP Family Medicine; Referring Provider Family Medicine; Visit Provider Family Medicine
DX: E83.52 Hypercalcemia (principal)
CPT/HCPCS: 36415; 82306; 82330

== ENCOUNTER → 2025-01-26 | Outpatient (CLI) | payer MEDICARE, SELFPAY ==
[2025-01-26 15:29] LABS: Ionized Calcium Order 1.34
== END | disposition home or self-care (01) ==
LOC: LAB 13:45
PROVIDERS: PCP Family Medicine; Referring Provider Family Medicine; Visit Provider Family Medicine
DX: E83.52 Hypercalcemia (principal)
CPT/HCPCS: 36415